=== PATIENT | female | born 1990 | race Caucasian/White ===

== ENCOUNTER → 2018-01-11 | Outpatient (REF) | payer OTHER ==
[2018-01-11 19:40] LABS: BASO % 0.5 % (0.0-1.0); EOS # 0.2 10^3/uL (0.0-0.50); EOS % 2.3 % (0.0-3.0); HEMATOCRIT 38.9 % (36.0-47.0); HEMOGLOBIN 12.8 g/dl (12.0-15.5); IMMATURE GRANULOCYTE % 0.5 % (0-3.0); LYMPH # 2.4 10^3/uL (1.5-6.5); LYMPH % 29.4 % (24.0-44.0); MEAN CORPUSCULAR HEMOGLOBIN 29.1 pg (27.0-33.0); MEAN CORPUSCULAR HGB CONC 32.9 g/dl (32.0-36.5); MEAN CORPUSCULAR VOLUME 88.4 fl (80.0-96.0); MONO # 0.5 10^3/uL (0.0-0.8); MONO % 5.7 % (0.0-5.0); NEUTROPHILS % 61.6 % (36.0-66.0); PLATELET COUNT, AUTOMATED 256 10^3/uL (150-450); RED CELL DISTRIBUTION WIDTH 13.5 % (11.5-14.5); WHITE BLOOD COUNT 8.1 10^3/uL (4.0-10.0)
[2018-01-11 19:49] LABS: ALBUMIN 3.9 GM/DL (3.2-5.2); ALBUMIN/GLOBULIN RATIO 1.05 (1.00-1.93); ALKALINE PHOSPHATASE 74 U/L (45-117); ALT/SGPT 38 U/L (12-78); ANION GAP 7 MEQ/L (8-16); AST/SGOT 20 U/L (7-37); BILIRUBIN,TOTAL 0.3 MG/DL (0.2-1.0); BLOOD UREA NITROGEN 13 MG/DL (7-18); CALCIUM LEVEL 9.2 MG/DL (8.5-10.1); CARBON DIOXIDE LEVEL 27 MEQ/L (21-32); CHLORIDE LEVEL 106 MEQ/L (98-107); CREATININE FOR GFR 0.78 MG/DL (0.55-1.30); FREE T4 0.97 NG/DL (0.76-1.46); GLOMERULAR FILTRATION RATE > 60.0 (>60); GLUCOSE, FASTING 77 MG/DL (70-100); POTASSIUM SERUM 4.1 MEQ/L (3.5-5.1); SODIUM LEVEL 140 MEQ/L (136-145); TOTAL PROTEIN 7.6 GM/DL (6.4-8.2)
== END ==
LOC: M SFHCADAM 11:25
DX: Z31.9 Encounter for procreative management, unspecified (principal); F32.9 Major depressive disorder, single episode, unspecified; E66.01 Morbid (severe) obesity due to excess calories

== ENCOUNTER → 2020-05-26 | Outpatient (REF) | payer OTHER ==
[2020-05-26 18:31] LABS: BASO % 0.4 % (0.0-1.0); EOS # 0.1 10^3/uL (0.0-0.5); HEMATOCRIT 39.3 % (36.0-47.0); HEMOGLOBIN 12.8 g/dl (12.0-15.5); LYMPH % 27.9 % (24.0-44.0); MEAN CORPUSCULAR HEMOGLOBIN 28.6 pg (27.0-33.0); MEAN CORPUSCULAR HGB CONC 32.6 g/dl (32.0-36.5); MEAN CORPUSCULAR VOLUME 87.7 fl (80.0-96.0); MONO # 0.3 10^3/uL (0.0-0.8); MONO % 4.5 % (0.0-5.0); NEUTROPHILS # 4.6 10^3/uL (1.5-8.5); NEUTROPHILS % 64.6 % (36.0-66.0); PLATELET COUNT, AUTOMATED 269 10^3/uL (150-450); RED BLOOD COUNT 4.48 10^6/uL (4.00-5.40); WHITE BLOOD COUNT 7.1 10^3/uL (4.0-10.0)
[2020-05-26 19:09] LABS: ALBUMIN 3.8 GM/DL (3.2-5.2); BILIRUBIN,TOTAL 0.3 MG/DL (0.2-1.0); CALCIUM LEVEL 9.4 MG/DL (8.5-10.1); CREATININE FOR GFR 1.23 MG/DL (0.55-1.30); FREE T4 1.16 NG/DL (0.76-1.46); GLOMERULAR FILTRATION RATE 54.2 (>60); POTASSIUM SERUM 4.2 MEQ/L (3.5-5.1); THYROID STIMULATING HORMONE 3.63 uIU/ML (0.358-3.740); TOTAL PROTEIN 7.4 GM/DL (6.4-8.2)
[2020-05-26 19:48] LABS: HEMOGLOBIN A1c 5.9 %
== END ==
LOC: M LAB REF 18:07 → M LABDRWAD 18:07
PROVIDERS: ATTEND Physician Assistant Medical
DX: N97.9 Female infertility, unspecified (principal); N91.5 Oligomenorrhea, unspecified; N93.9 Abnormal uterine and vaginal bleeding, unspecified; E66.9 Obesity, unspecified

== ENCOUNTER 2021-04-22 13:21 | Emergency (ER) | payer OTHER ==
[~2021-04-22] VITALS: Ht 160 cm; Wt 120.0 kg
[2021-04-22] MEDS ORDERED: AMIT25TA17 (13:36)
[2021-04-22] MEDS ORDERED: FLUTISP (13:36)
[2021-04-22] MEDS ORDERED: KETOROLAC 30 MG/ML 1ML VIAL IV ONE (17:30)
[2021-04-22] MEDS ORDERED: ACETAMINOPHEN 325 MG TAB PO ONE (17:30)
[2021-04-22] MEDS ORDERED: METOCLOPRAMIDE INJ 10MG/2ML VIAL (J2765 PER 1) IV ONE (17:30)
[2021-04-22] MEDS ORDERED: NS 1,000 ML IV ONE (17:30)
[2021-04-22 18:12] LABS: BASO % 0.3 % (0.0-1.0); EOS # 0.2 10^3/uL (0.0-0.5); EOS % 1.9 % (0.0-3.0); HEMATOCRIT 40.5 % (36.0-47.0); LYMPH # 2.2 10^3/uL (1.5-5.0); LYMPH % 23.3 % (24.0-44.0); MEAN CORPUSCULAR HEMOGLOBIN 27.8 pg (27.0-33.0); MEAN CORPUSCULAR HGB CONC 32.1 g/dl (32.0-36.5); MEAN CORPUSCULAR VOLUME 86.5 fl (80.0-96.0); MONO # 0.5 10^3/uL (0.0-0.8); MONO % 5.7 % (2.0-8.0); NEUTROPHILS # 6.4 10^3/uL (1.5-8.5); NEUTROPHILS % 68.3 % (36.0-66.0); PLATELET COUNT, AUTOMATED 291 10^3/uL (150-450); RED BLOOD COUNT 4.68 10^6/uL (4.00-5.40); WHITE BLOOD COUNT 9.4 10^3/uL (4.0-10.0)
--- NOTE | 2021-04-22 18:19 | REPVR ---
PROCEDURE INFORMATION: Exam: CT Head Without Contrast Exam date and time: 04/22/2021 5:29 PM Age: 31 years old Clinical indication: Pain; Headache; Additional info: Intractable headache TECHNIQUE: Imaging protocol: Computed tomography of the head without contrast. Radiation optimization: All CT scans at this facility use at least one of these dose optimization techniques: automated exposure control; mA and/or kV adjustment per patient size (includes targeted exams where dose is matched to clinical indication); or iterative reconstruction. COMPARISON: No relevant prior studies available. FINDINGS: Brain: Normal. No hemorrhage. Unremarkable white matter. No mass effect. Cerebral ventricles: No ventriculomegaly. Paranasal sinuses: Visualized sinuses are unremarkable. No fluid levels. Mastoid air cells: Visualized mastoid air cells are well aerated. Bones/joints: Unremarkable. No acute fracture. Soft tissues: Unremarkable. IMPRESSION: No acute intracranial abnormality. Electronically signed by: Eliazar Cabello On 04/22/2021 18:18:48 PM
[2021-04-22 18:41] LABS: BLOOD UREA NITROGEN 14 MG/DL (7-18); C REACTIVE PROTEIN QUANTITATIV 0.88 MG/DL (0.00-0.30); CALCIUM LEVEL 9.1 MG/DL (8.5-10.1); CARBON DIOXIDE LEVEL 27 MEQ/L (21-32); CHLORIDE LEVEL 103 MEQ/L (98-107); GLOMERULAR FILTRATION RATE > 60.0 (>60); GLUCOSE, FASTING 72 MG/DL (70-100); POTASSIUM SERUM 4.5 MEQ/L (3.5-5.1); SODIUM LEVEL 137 MEQ/L (136-145)
[2021-04-22 19:33] LABS: ERYTHROCYTE SEDIMENTATION RATE 2 mm/hr (0-20)
[2021-04-22] MEDS ORDERED: ISOVUE-370 76% 100ML VIAL As Ordered ONE (20:06)
--- NOTE | 2021-04-22 20:27 | REPVR ---
PROCEDURE INFORMATION: Exam: CT Angiography Head With Contrast, Arteriography Exam date and time: 04/22/2021 8:09 PM Age: 31 years old Clinical indication: Pain; Headache; Additional info: Headache, family HX aneurysm (r/o aneurysm) TECHNIQUE: Imaging protocol: Computed tomography angiography of the head with contrast. Exam focused on the arteries. 3D rendering (Not supervised by radiologist): MIP and/or 3D reconstructed images were created by the technologist. Radiation optimization: All CT scans at this facility use at least one of these dose optimization techniques: automated exposure control; mA and/or kV adjustment per patient size (includes targeted exams where dose is matched to clinical indication); or iterative reconstruction. Contrast material: ISOVUE 370; Contrast volume: 75 ml; Contrast route: INTRAVENOUS (IV); COMPARISON: CT Head without contrast 04/22/2021 6:02 PM FINDINGS: ANTERIOR CIRCULATION: Right internal carotid artery: Unremarkable. Intracranial segment is patent with no significant stenosis. No aneurysm. Right middle cerebral artery: Unremarkable. No occlusion or significant stenosis. No aneurysm. Right anterior cerebral artery: Unremarkable. No occlusion or significant stenosis. No aneurysm. Left internal carotid artery: Unremarkable. Intracranial segment is patent with no significant stenosis. No aneurysm. Left middle cerebral artery: Unremarkable. No occlusion or significant stenosis. No aneurysm. Left anterior cerebral artery: Unremarkable. No occlusion or significant stenosis. No aneurysm. POSTERIOR CIRCULATION: Right vertebral artery: Unremarkable. No occlusion or significant stenosis. No aneurysm. Left vertebral artery: Unremarkable. No occlusion or significant stenosis. No aneurysm. Basilar artery: Unremarkable. No occlusion or significant stenosis. No aneurysm. Right posterior cerebral artery: Unremarkable. No occlusion or significant stenosis. No aneurysm. Left posterior cerebral artery: Unremarkable. No occlusion or significant stenosis. No aneurysm. Brain: No definite mass, mass effect, or midline shift. Cerebral ventricles: No ventriculomegaly. Bones/joints: Unremarkable. No acute fracture. Soft tissues: Unremarkable. IMPRESSION: No large vessel stenosis or occlusion. No aneurysm demonstrated. Electronically signed by: Eliazar Cabello On 04/22/2021 20:26:42 PM
[2021-04-22] MEDS ORDERED: TOPA50TA8 PO (20:29)
[2021-04-22 20:35] VITALS: BP 143/69
== END 2021-04-22 21:08 | disposition home or self-care (01) ==
LOC: M ED 13:21
DX: R51.9 Headache, unspecified (principal)
CPT/HCPCS: 70450; 70496; 80048; 84702; 85025; 85652; 86140; 96361; 96374; 96375; 99284; J1885; J2765; Q9967

== ENCOUNTER → 2021-11-29 | Outpatient (REF) | payer OTHER ==
[~2021-11-29] MED LIST: AMIT25TA17; FLUTISP; TOPA50TA8 PO
[2021-11-29 16:29] LABS: BASO % 0.6 % (0.0-1.0); EOS # 0.2 10^3/uL (0.0-0.5); EOS % 2.2 % (0.0-3.0); HEMOGLOBIN 12.2 g/dl (12.0-15.5); LYMPH # 2.2 10^3/uL (1.5-5.0); LYMPH % 32.7 % (24.0-44.0); MEAN CORPUSCULAR HEMOGLOBIN 28.8 pg (27.0-33.0); MEAN CORPUSCULAR VOLUME 87.3 fl (80.0-96.0); MONO # 0.4 10^3/uL (0.0-0.8); MONO % 5.8 % (2.0-8.0); NEUTROPHILS # 3.9 10^3/uL (1.5-8.5); NEUTROPHILS % 58.4 % (36.0-66.0); PLATELET COUNT, AUTOMATED 295 10^3/uL (150-450); RED BLOOD COUNT 4.24 10^6/uL (4.00-5.40); WHITE BLOOD COUNT 6.7 10^3/uL (4.0-10.0)
[2021-11-29 17:13] LABS: ALBUMIN 3.7 GM/DL (3.2-5.2); ALT/SGPT 30 U/L (12-78); BILIRUBIN,TOTAL 0.2 MG/DL (0.2-1.0); BLOOD UREA NITROGEN 19 MG/DL (7-18); CALCIUM LEVEL 8.9 MG/DL (8.5-10.1); CARBON DIOXIDE LEVEL 26 MEQ/L (21-32); CHLORIDE LEVEL 108 MEQ/L (98-107); CREATININE FOR GFR 0.98 MG/DL (0.55-1.30); GLOMERULAR FILTRATION RATE > 60.0 (>60); GLUCOSE, FASTING 105 MG/DL (70-100); POTASSIUM SERUM 3.7 MEQ/L (3.5-5.1); SODIUM LEVEL 141 MEQ/L (136-145); TOTAL PROTEIN 7.2 GM/DL (6.4-8.2)
== END ==
LOC: M SFHCADAM 11:25
PROVIDERS: ATTEND Family Medicine
DX: Z00.00 Encounter for general adult medical examination without abnormal findings (principal)

== ENCOUNTER → 2023-01-31 | Outpatient (REF) | payer OTHER ==
[~2023-01-31] MED LIST changes: +FLUT50SP17; -FLUTISP
[2023-01-31 13:11] LABS: BASO # 0.1 10^3/uL (0.0-0.2); BASO % 0.6 % (0.0-1.0); EOS # 0.2 10^3/uL (0.0-0.5); EOS % 2.7 % (0.0-3.0); HEMATOCRIT 36.6 % (36.0-47.0); HEMOGLOBIN 11.8 g/dl (12.0-15.5); LYMPH # 2.5 10^3/uL (1.5-5.0); LYMPH % 30.6 % (24.0-44.0); MEAN CORPUSCULAR HEMOGLOBIN 28.1 pg (27.0-33.0); MEAN CORPUSCULAR HGB CONC 32.2 g/dl (32.0-36.5); MEAN CORPUSCULAR VOLUME 87.1 fl (80.0-96.0); MONO # 0.4 10^3/uL (0.0-0.8); MONO % 5.4 % (2.0-8.0); NEUTROPHILS # 4.8 10^3/uL (1.5-8.5); NEUTROPHILS % 60.3 % (36.0-66.0); PLATELET COUNT, AUTOMATED 265 10^3/uL (150-450)
[2023-01-31 13:42] LABS: ALBUMIN 3.4 G/DL (3.2-5.2); ALKALINE PHOSPHATASE 75 U/L (46-116); ALT/SGPT 10 U/L (7.0-40); AST/SGOT 17 U/L (<34); BILIRUBIN,TOTAL 0.3 MG/DL (0.3-1.2); BLOOD UREA NITROGEN 15 MG/DL (9-23); CALCIUM LEVEL 8.4 MG/DL (8.5-10.1); CARBON DIOXIDE LEVEL 24 MMOL/L (20-31); CHLORIDE LEVEL 107 MMOL/L (98-107); CHOLESTEROL LEVEL 184 MG/DL (<200); CREATININE FOR GFR 0.87 MG/DL (0.55-1.30); GLOMERULAR FILTRATION RATE > 60.0 (>60); GLUCOSE, FASTING 107 MG/DL (60-100); LDL CHOLESTEROL 128.4 MG/DL (<100); POTASSIUM SERUM 3.8 MMOL/L (3.5-5.1); SODIUM LEVEL 140 MMOL/L (136-145); TOTAL PROTEIN 6.7 G/DL (5.7-8.2); TRIGLYCERIDES LEVEL 78 MG/DL (<150)
== END ==
LOC: M SFHCADAM 10:04
PROVIDERS: ATTEND Family Medicine
DX: Z00.00 Encounter for general adult medical examination without abnormal findings (principal)

== ENCOUNTER → 2023-02-22 | Outpatient (CLI) | payer OTHER | LOC: M SOG 08:09 | PROVIDERS: ATTEND Orthopaedic Surgery | DX: M25.562 Pain in left knee (principal) ==

== ENCOUNTER → 2023-02-28 | Outpatient (CLI) | payer OTHER | LOC: M ADAMS 14:28 | PROVIDERS: ATTEND Family Medicine | DX: M54.50 Low back pain, unspecified (principal); M51.37 Other intervertebral disc degeneration, lumbosacral region; M43.17 Spondylolisthesis, lumbosacral region ==

== ENCOUNTER → 2023-07-20 | Outpatient (REF) | payer OTHER ==
[~2023-07-20] MED LIST changes: -AMIT25TA17; +AMIT25TA19
== END ==
LOC: M LAB REF 19:59
PROVIDERS: ATTEND Physician Assistant
DX: J00 Acute nasopharyngitis [common cold] (principal)

== ENCOUNTER → 2023-10-26 | Outpatient (REF) | payer OTHER ==
[~2023-10-26] MED LIST changes: -FLUT50SP17; +FLUTISP
== END ==
LOC: M SFHCADAM 16:17
PROVIDERS: ATTEND Physician Assistant
DX: J06.9 Acute upper respiratory infection, unspecified (principal); Z53.9 Procedure and treatment not carried out, unspecified reason

== ENCOUNTER → 2024-01-19 | Outpatient (REF) | payer OTHER | LOC: M LAB REF 16:17 | PROVIDERS: ATTEND Physician Assistant | DX: R11.2 Nausea with vomiting, unspecified (principal) ==

== ENCOUNTER → 2024-09-02 | Outpatient (CLI) | payer OTHER | LOC: M PLALAB 11:24 | PROVIDERS: ATTEND Advanced Practice Midwife | DX: O26.91 Pregnancy related conditions, unspecified, first trimester (principal); O28.3 Abnormal ultrasonic finding on antenatal screening of mother; Z3A.00 Weeks of gestation of pregnancy not specified ==

== ENCOUNTER → 2024-09-02 | Outpatient (CLI) | payer OTHER | LOC: M WHC 13:27 | PROVIDERS: ATTEND Advanced Practice Midwife | DX: O26.891 Other specified pregnancy related conditions, first trimester (principal); O28.3 Abnormal ultrasonic finding on antenatal screening of mother; Z3A.01 Less than 8 weeks gestation of pregnancy; N88.8 Other specified noninflammatory disorders of cervix uteri ==

== ENCOUNTER → 2024-09-04 | Outpatient (CLI) | payer OTHER | LOC: M PLALAB 14:07 | PROVIDERS: ATTEND Advanced Practice Midwife | DX: O26.91 Pregnancy related conditions, unspecified, first trimester (principal) ==

== ENCOUNTER → 2024-09-06 | Outpatient (CLI) | payer OTHER | LOC: M PLALAB 10:31 | PROVIDERS: ATTEND Advanced Practice Midwife | DX: Z34.91 Encounter for supervision of normal pregnancy, unspecified, first trimester (principal) ==

== ENCOUNTER → 2024-09-09 | Outpatient (CLI) | payer OTHER | LOC: M WHC 11:40 → M RAD 12:10 | PROVIDERS: ATTEND Advanced Practice Midwife | DX: Z34.91 Encounter for supervision of normal pregnancy, unspecified, first trimester (principal); Z3A.01 Less than 8 weeks gestation of pregnancy ==

== ENCOUNTER 2024-09-25 09:38 | Emergency (ER) | payer OTHER ==
[~2024-09-25] VITALS: Ht 157.5 cm; Wt 85.7 kg
[2024-09-25] MEDS: ONDANSETRON 4MG ORAL DISINTEGRATING TAB PO ONE (09:55)
[2024-09-25 11:06] VITALS: BP 136/74; TEMP 98.3; O2SAT 97
[2024-09-25 11:16] LABS: BASO % 0.2 % (0.0-1.0); EOS % 0.2 % (0.0-3.0); HEMATOCRIT 40.7 % (36.0-47.0); HEMOGLOBIN 14.1 g/dl (12.0-15.5); LYMPH # 1.6 10^3/uL (1.5-5.0); LYMPH % 12.1 % (24.0-44.0); MEAN CORPUSCULAR HEMOGLOBIN 29.9 pg (27.0-33.0); MEAN CORPUSCULAR HGB CONC 34.6 g/dl (32.0-36.5); MEAN CORPUSCULAR VOLUME 86.2 fl (80.0-96.0); MONO # 0.6 10^3/uL (0.0-0.8); MONO % 4.2 % (2.0-8.0); NEUTROPHILS % 82.8 % (36.0-66.0); PLATELET COUNT, AUTOMATED 320 10^3/uL (150-450); RED BLOOD COUNT 4.72 10^6/uL (4.00-5.40); WHITE BLOOD COUNT 13.3 10^3/uL (4.0-10.0)
[2024-09-25] MEDS: diphenhydrAMINE 50MG/ML VIAL IV ONE (11:30)
[2024-09-25] MEDS: ACETAMINOPHEN *IV* 1,000 MG in IV 1 EA IV ONE (11:30)
[2024-09-25] MEDS: METOCLOPRAMIDE INJ 10MG/2ML VIAL IV ONE (11:31)
[2024-09-25 11:37] LABS: BLOOD UREA NITROGEN 22 MG/DL (9-23); CALCIUM LEVEL 10.3 MG/DL (8.5-10.1); CARBON DIOXIDE LEVEL 25 MMOL/L (20-31); CHLORIDE LEVEL 99 MMOL/L (98-107); CREATININE FOR GFR 0.62 MG/DL (0.55-1.30); GLOMERULAR FILTRATION RATE > 60.0 (>60); GLUCOSE, FASTING 131 MG/DL (60-100); POTASSIUM SERUM 3.6 MMOL/L (3.5-5.1); SODIUM LEVEL 137 MMOL/L (136-145)
[2024-09-25 11:57] LABS: LIPASE 27 U/L (12-53)
[2024-09-25 11:59] LABS: ALBUMIN 3.9 G/DL (3.2-5.2); ALKALINE PHOSPHATASE 89 U/L (35-104); ALT/SGPT 24 U/L (7.0-40); AST/SGOT 16 U/L (<34); BILIRUBIN,DIRECT 0.2 MG/DL (<0.4); BILIRUBIN,TOTAL 0.6 MG/DL (0.3-1.2); CK-MB VALUE MASS < 1.0 NG/ML (<3.6); CPK CREATINE PHOSPHOKINASE 62 U/L (34-145); MB/CK RELATIVE INDEX 1.61 (< OR =4); TOTAL PROTEIN 8.3 G/DL (5.7-8.2)
[2024-09-25 12:07] LABS: HCG, SERUM QUANTITATIVE 104720.8 MIU/ML (<4.2)
[2024-09-25] MEDS ORDERED: REGL10TA6 PO (13:06)
[2024-09-25] MEDS ORDERED: ONDA-282 PO (13:06)
[2024-09-25] MEDS: MAGNESIUM OXIDE 400MG TAB (MAG-OX) PO ONE (13:08)
== END 2024-09-25 13:14 | disposition home or self-care (01) ==
LOC: M ED 09:38
DX: O21.9 Vomiting of pregnancy, unspecified (principal); O99.351 Diseases of the nervous system complicating pregnancy, first trimester; R51.9 Headache, unspecified; Z3A.08 8 weeks gestation of pregnancy; Z88.1 Allergy status to other antibiotic agents; Z88.2 Allergy status to sulfonamides; Z79.899 Other long term (current) drug therapy; Z79.83 Long term (current) use of bisphosphonates
CPT/HCPCS: 80048; 80076; 82550; 82553; 83690; 84484; 84702; 85025; 87486; 87581; 87633; 87798; 93005; 96365; 96375; 99284; J0131; J1200; J2765

== ENCOUNTER → 2024-10-22 | Outpatient (CLI) | payer OTHER ==
[~2024-10-22] MED LIST changes: +ONDA-282 PO; +REGL10TA6 PO
[2024-10-22 17:59] LABS: HEMATOCRIT 36.5 % (36.0-47.0); HEMOGLOBIN 12.5 g/dl (12.0-15.5); MEAN CORPUSCULAR HEMOGLOBIN 30.1 pg (27.0-33.0); MEAN CORPUSCULAR HGB CONC 34.2 g/dl (32.0-36.5); PLATELET COUNT, AUTOMATED 285 10^3/uL (150-450); RED BLOOD COUNT 4.15 10^6/uL (4.00-5.40); WHITE BLOOD COUNT 9.2 10^3/uL (4.0-10.0)
[2024-10-22 18:22] LABS: URIC ACID 4.4 MG/DL (3.1-7.8)
[2024-10-22 18:24] LABS: LDH LACTATE DEHYDROGENASE 155 U/L (120-246)
[2024-10-22 18:25] LABS: ALT/SGPT 14 U/L (7.0-40); AST/SGOT 13 U/L (<34); BILIRUBIN,TOTAL 0.3 MG/DL (0.3-1.2); CREATININE FOR GFR 0.58 MG/DL (0.55-1.30); GLOMERULAR FILTRATION RATE > 60.0 (>60)
[2024-10-22 18:50] LABS: HIV 1&2 SCREEN NEGATIVE (NEGATIVE)
[2024-10-22 18:59] LABS: HEPATITIS C VIRUS ABY INDEX 0.13 INDEX (<0.8)
== END ==
LOC: M PLALAB 15:59
PROVIDERS: ATTEND Advanced Practice Midwife
DX: Z34.81 Encounter for supervision of other normal pregnancy, first trimester (principal)

== ENCOUNTER → 2024-12-12 | Outpatient (CLI) | payer OTHER | LOC: M RAD 13:22 | PROVIDERS: ATTEND Advanced Practice Midwife | DX: O32.2XX0 Maternal care for transverse and oblique lie, not applicable or unspecified (principal); Z3A.19 19 weeks gestation of pregnancy ==

== ENCOUNTER 2024-12-31 10:23 | Outpatient (CLI) | payer OTHER ==
[~2024-12-31] VITALS: Ht 162.6 cm; Wt 119.0 kg
[2024-12-31 10:36] VITALS: BP 144/72
[2024-12-31] MEDS ORDERED: ASPI81CH33 PO (11:27)
[2024-12-31] MEDS ORDERED: ESCI5SOL3 PO (11:27)
[2024-12-31] MEDS ORDERED: BANO25TA PO (11:27)
[2024-12-31] MEDS ORDERED: HOME MED LIST COMPLETE! XX SCH (11:30)
[2024-12-31] MEDS: ONDANSETRON 4MG 2ML VIAL IV ONE (11:49)
[2024-12-31] MEDS: LR 1,000 ML IV ONE (11:49)
[2024-12-31] MEDS: LR 1,000 ML IV SCH (11:52)
[2024-12-31 13:11] VITALS: BP 135/62
[2024-12-31 13:55] LABS: HEMATOCRIT 33.3 % (36.0-47.0); HEMOGLOBIN 11.4 g/dl (12.0-15.5); MEAN CORPUSCULAR HEMOGLOBIN 30.7 pg (27.0-33.0); MEAN CORPUSCULAR HGB CONC 34.2 g/dl (32.0-36.5); MEAN CORPUSCULAR VOLUME 89.8 fl (80.0-96.0); PLATELET COUNT, AUTOMATED 299 10^3/uL (150-450); RED BLOOD COUNT 3.71 10^6/uL (4.00-5.40); WHITE BLOOD COUNT 17.7 10^3/uL (4.0-10.0)
[2024-12-31] MEDS: ACETAMINOPHEN 500 MG TAB PO ONE (14:10)
[2024-12-31] MEDS: CYCLOBENZAPRINE 10MG TABLET PO ONE (14:10)
[2024-12-31 14:24] LABS: LIPASE 25 U/L (12-53)
[2024-12-31 14:26] LABS: AMYLASE 75 U/L (30-118)
[2024-12-31 14:33] LABS: KETONE, URINE AUTO RFX 1+ mg/dL (NEGATIVE); LEUKOCYTE ESTERASE UR AUTO RFX NEGATIVE (NEGATIVE); NITRITE, URINE AUTO RFX NEGATIVE (NEGATIVE); RBC, URINE AUTO RFX 0 /HPF (0-3); SQUAM EPITHELIAL CELL UR AURFX 8 /HPF (0-6); WBC, URINE AUTO RFX 1 /HPF (0-3)
[2024-12-31] MEDS ORDERED: CYCL-707 PO (15:56)
[2024-12-31] MEDS ORDERED: PROM50TA PO (15:56)
== END 2024-12-31 16:15 | disposition home or self-care (01) ==
LOC: M LDO 10:23
PROVIDERS: ATTEND Obstetrics & Gynecology
DX: O99.612 Diseases of the digestive system complicating pregnancy, second trimester (principal); O09.522 Supervision of elderly multigravida, second trimester; O99.342 Other mental disorders complicating pregnancy, second trimester; O09.212 Supervision of pregnancy with history of pre-term labor, second trimester; O34.219 Maternal care for unspecified type scar from previous cesarean delivery; K52.9 Noninfective gastroenteritis and colitis, unspecified; F32.A Depression, unspecified; F41.9 Anxiety disorder, unspecified; Z79.82 Long term (current) use of aspirin; Z86.79 Personal history of other diseases of the circulatory system; Z87.891 Personal history of nicotine dependence; Z3A.22 22 weeks gestation of pregnancy
CPT/HCPCS: 36415; 81001; 82150; 83690; 85027; 93005; 96360; 96374; G0463; J2405

== ENCOUNTER 2025-01-01 17:14 | Emergency (ER) | payer OTHER ==
[~2025-01-01] VITALS: Ht 157.5 cm; Wt 102.3 kg
[~2025-01-01 17:14] MED LIST changes: +ASPI81CH33 PO; +BANO25TA PO; +CYCL-707 PO; +ESCI5SOL3 PO; +PROM50TA PO
[2025-01-01] MEDS: NS (Normal Saline) 0.9% 1,000 ML IV ONE (17:46)
[2025-01-01] MEDS: ACETAMINOPHEN *IV* 1,000 MG in IV 1 EA IV ONE (17:46)
[2025-01-01 17:49] LABS: BASO % 0.4 % (0.0-1.0); EOS # 0.2 10^3/uL (0.0-0.5); EOS % 1.7 % (0.0-3.0); HEMATOCRIT 32.4 % (36.0-47.0); LYMPH # 1.9 10^3/uL (1.5-5.0); LYMPH % 18.1 % (24.0-44.0); MEAN CORPUSCULAR HEMOGLOBIN 30.5 pg (27.0-33.0); MEAN CORPUSCULAR VOLUME 89.8 fl (80.0-96.0); MONO # 0.6 10^3/uL (0.0-0.8); MONO % 5.8 % (2.0-8.0); NEUTROPHILS # 7.6 10^3/uL (1.5-8.5); NEUTROPHILS % 73.1 % (36.0-66.0); PLATELET COUNT, AUTOMATED 238 10^3/uL (150-450); RED BLOOD COUNT 3.61 10^6/uL (4.00-5.40); WHITE BLOOD COUNT 10.3 10^3/uL (4.0-10.0)
[2025-01-01 18:17] LABS: LIPASE 24 U/L (12-53)
[2025-01-01 18:19] LABS: CPK CREATINE PHOSPHOKINASE 124 U/L (34-145)
[2025-01-01 18:24] LABS: ALBUMIN 2.8 G/DL (3.2-5.2); ALKALINE PHOSPHATASE 80 U/L (35-104); ALT/SGPT 22 U/L (7.0-40); AST/SGOT 22 U/L (<34); BILIRUBIN,DIRECT 0.2 MG/DL (<0.4); BILIRUBIN,TOTAL 0.5 MG/DL (0.3-1.2); BLOOD UREA NITROGEN 9 MG/DL (9-23); CALCIUM LEVEL 8.4 MG/DL (8.5-10.1); CARBON DIOXIDE LEVEL 23 MMOL/L (20-31); CHLORIDE LEVEL 103 MMOL/L (98-107); CK-MB VALUE MASS < 1.0 NG/ML (<3.6); CREATININE FOR GFR 0.53 MG/DL (0.55-1.30); FREE T4 1.35 NG/DL (0.89-1.76); GLOMERULAR FILTRATION RATE > 90.0 (>60); GLUCOSE, FASTING 86 MG/DL (60-100); POTASSIUM SERUM 3.1 MMOL/L (3.5-5.1); SODIUM LEVEL 138 MMOL/L (136-145); THYROID STIMULATING HORMONE 0.864 uIU/ML (0.55-4.78); TOTAL PROTEIN 6.3 G/DL (5.7-8.2)
[2025-01-01] MEDS: POTASSIUM CHLORIDE 10MEQ SR TABLET PO ONE (18:30)
[2025-01-01 18:43] LABS: CK-MB VALUE MASS < 1.0 NG/ML (<3.6)
[2025-01-01 18:44] LABS: CPK CREATINE PHOSPHOKINASE 125 U/L (34-145)
[2025-01-01] MEDS: METOCLOPRAMIDE INJ 10MG/2ML VIAL IV ONE (18:58)
[2025-01-01] MEDS: diphenhydrAMINE 50MG/ML VIAL IV STA (18:58)
[2025-01-01] MEDS ORDERED: ISOVUE-370 76% 100ML VIAL As Ordered ONE (19:25)
[2025-01-01 21:59] VITALS: BP 131/70; TEMP 98; O2SAT 98
== END 2025-01-01 22:48 | disposition home or self-care (01) ==
LOC: EDBD 17:14 → M ED 17:14
DX: O99.282 Endocrine, nutritional and metabolic diseases complicating pregnancy, second trimester (principal); E87.6 Hypokalemia; O26.892 Other specified pregnancy related conditions, second trimester; R07.9 Chest pain, unspecified; O98.512 Other viral diseases complicating pregnancy, second trimester; O10.012 Pre-existing essential hypertension complicating pregnancy, second trimester; O99.342 Other mental disorders complicating pregnancy, second trimester; Z79.82 Long term (current) use of aspirin; Z79.899 Other long term (current) drug therapy; Z87.891 Personal history of nicotine dependence; Z3A.00 Weeks of gestation of pregnancy not specified
CPT/HCPCS: 71275; 80048; 80076; 82550; 82553; 83690; 84439; 84443; 84484; 85025; 85379; 87486; 87581; 87633; 87798; 93005; 93041; 94760; 96365; 96366; 96375; 99285; J0131; J1200; J2765; Q9967

== ENCOUNTER 2025-01-06 22:11 | Emergency (ER) | payer OTHER ==
[~2025-01-06] VITALS: Ht 157.5 cm; Wt 100.0 kg
[2025-01-06 22:45] LABS: BASO % 0.3 % (0.0-1.0); EOS # 0.1 10^3/uL (0.0-0.5); EOS % 0.8 % (0.0-3.0); HEMATOCRIT 34.8 % (36.0-47.0); HEMOGLOBIN 12.2 g/dl (12.0-15.5); MEAN CORPUSCULAR HEMOGLOBIN 31.1 pg (27.0-33.0); MEAN CORPUSCULAR HGB CONC 35.1 g/dl (32.0-36.5); MEAN CORPUSCULAR VOLUME 88.8 fl (80.0-96.0); MONO # 0.7 10^3/uL (0.0-0.8); MONO % 5.2 % (2.0-8.0); NEUTROPHILS # 10.4 10^3/uL (1.5-8.5); NEUTROPHILS % 77.7 % (36.0-66.0); PLATELET COUNT, AUTOMATED 279 10^3/uL (150-450); RED BLOOD COUNT 3.92 10^6/uL (4.00-5.40); WHITE BLOOD COUNT 13.4 10^3/uL (4.0-10.0)
[2025-01-06] MEDS: ONDANSETRON 4MG 2ML VIAL IV ONE (22:57)
[2025-01-06] MEDS: NS (Normal Saline) 0.9% 1,000 ML IV ONE (22:58)
[2025-01-06] MEDS: ACETAMINOPHEN *IV* 1,000 MG in IV 1 EA IV ONE (22:58)
[2025-01-06 23:14] LABS: ALBUMIN 3.2 G/DL (3.2-5.2); ALKALINE PHOSPHATASE 97 U/L (35-104); ALT/SGPT 15 U/L (7.0-40); AST/SGOT 13 U/L (<34); BILIRUBIN,TOTAL 0.4 MG/DL (0.3-1.2); BLOOD UREA NITROGEN 9 MG/DL (9-23); CARBON DIOXIDE LEVEL 22 MMOL/L (20-31); CHLORIDE LEVEL 103 MMOL/L (98-107); CK-MB VALUE MASS < 1.0 NG/ML (<3.6); CPK CREATINE PHOSPHOKINASE 61 U/L (34-145); CREATININE FOR GFR 0.48 MG/DL (0.55-1.30); GLOMERULAR FILTRATION RATE > 90.0 (>60); GLUCOSE, FASTING 92 MG/DL (60-100); MB/CK RELATIVE INDEX 1.63 (< OR =4); POTASSIUM SERUM 3.8 MMOL/L (3.5-5.1); SODIUM LEVEL 138 MMOL/L (136-145); TOTAL PROTEIN 7.1 G/DL (5.7-8.2)
[2025-01-06 23:26] LABS: PROCALCITONIN <0.04 ng/ml
[2025-01-07 00:34] VITALS: TEMP 98
[2025-01-07] MEDS: BUTORPHANOL 2 MG/ML 1ML VIAL IV ONE (00:34)
[2025-01-07 01:45] VITALS: BP 101/56; O2SAT 97
== END 2025-01-07 02:15 | disposition home or self-care (01) ==
LOC: M ED 22:11 → EDBD 22:11 → M ED 01-07 02:15
DX: O98.512 Other viral diseases complicating pregnancy, second trimester (principal); B34.2 Coronavirus infection, unspecified; O99.342 Other mental disorders complicating pregnancy, second trimester; F32.A Depression, unspecified; Z88.1 Allergy status to other antibiotic agents; Z88.2 Allergy status to sulfonamides; Z79.899 Other long term (current) drug therapy; Z3A.23 23 weeks gestation of pregnancy
CPT/HCPCS: 80053; 82550; 82553; 83735; 84145; 84484; 85025; 87486; 87581; 87633; 87798; 93005; 96374; 96375; 99284; J0131; J0595; J2405

== ENCOUNTER 2025-03-30 09:28 | Outpatient (CLI) | payer OTHER ==
[~2025-03-30] VITALS: Ht 157.5 cm; Wt 102.1 kg
[2025-03-30] VITALS (12 sets, daily range): BP systolic 121–152; BP diastolic 60–87; O2SAT 97
[~2025-03-30 09:28] MED LIST changes: +FERR325T19 PO; +OMEP40CA4 PO
[2025-03-30] MEDS ORDERED: HOME MED LIST COMPLETE! XX SCH (09:45)
[2025-03-30] MEDS: LR 1,000 ML IV ONE (10:24)
[2025-03-30 10:27] LABS: PLATELET COUNT, AUTOMATED 311 10^3/uL (150-450)
[2025-03-30] MEDS: diphenhydrAMINE 50 MG/ML VIAL IV ONE (10:29)
[2025-03-30 10:56] LABS: LDH LACTATE DEHYDROGENASE 229 U/L (120-246)
[2025-03-30] MEDS: ACETAMINOPHEN *IV* 1,000 MG in IV 1 EA IV ONE (10:56)
[2025-03-30 10:57] LABS: ALT/SGPT 14 U/L (7.0-40); AST/SGOT 20 U/L (<34); CREATININE FOR GFR 0.59 MG/DL (0.55-1.30); GLOMERULAR FILTRATION RATE > 90.0 (>60)
[2025-03-30] MEDS: LR 1,000 ML IV SCH (11:24)
[2025-03-30 12:55] LABS: TOTAL PROTEIN,RANDOM URINE 49.5 MG/DL (0.0-14.0)
[2025-03-30 13:35] LABS: KETONE, URINE AUTO RFX 1+ mg/dL (NEGATIVE); LEUKOCYTE ESTERASE UR AUTO RFX NEGATIVE (NEGATIVE); MUCUS, URINE RFX LARGE (NEGATIVE); NITRITE, URINE AUTO RFX NEGATIVE (NEGATIVE); RBC, URINE AUTO RFX 1 /HPF (0-3); SQUAM EPITHELIAL CELL UR AURFX 5 /HPF (0-6); WBC, URINE AUTO RFX 9 /HPF (0-3)
[2025-03-30] MEDS ORDERED: PROM1SUP2 PR (13:44)
== END 2025-03-30 14:04 | disposition home or self-care (01) ==
LOC: M LDO 09:28
PROVIDERS: ATTEND Obstetrics & Gynecology
DX: O21.8 Other vomiting complicating pregnancy (principal); O26.893 Other specified pregnancy related conditions, third trimester; O09.513 Supervision of elderly primigravida, third trimester; O10.013 Pre-existing essential hypertension complicating pregnancy, third trimester; R25.2 Cramp and spasm; R51.9 Headache, unspecified; R19.7 Diarrhea, unspecified; Z3A.34 34 weeks gestation of pregnancy
CPT/HCPCS: 36415; 59025; 76815; 81001; 82150; 82247; 82570; 83615; 83690; 84156; 84450; 84460; 84550; 85027; 87486; 87581; 87633; 87798; 96360; 96361; 96365; 96374; 96375; G0463; J0131; J1200; J2765

== ENCOUNTER 2025-04-04 14:58 | Outpatient (CLI) | payer OTHER ==
[~2025-04-04] VITALS: Ht 157.5 cm; Wt 102.3 kg
[~2025-04-04 14:58] MED LIST changes: +PROM1SUP2 PR
[2025-04-04 15:12] VITALS: BP 134/61
[2025-04-04] MEDS ORDERED: HOME MED LIST COMPLETE! XX SCH (15:20)
== END 2025-04-04 17:44 | disposition home or self-care (01) ==
LOC: M LDO 14:58
PROVIDERS: ATTEND Obstetrics & Gynecology
DX: O21.8 Other vomiting complicating pregnancy (principal); O10.913 Unspecified pre-existing hypertension complicating pregnancy, third trimester; O34.219 Maternal care for unspecified type scar from previous cesarean delivery; O09.523 Supervision of elderly multigravida, third trimester; Z3A.35 35 weeks gestation of pregnancy; Z88.1 Allergy status to other antibiotic agents; Z88.2 Allergy status to sulfonamides
CPT/HCPCS: 59025; G0463

== ENCOUNTER 2025-04-05 13:16 | Outpatient (CLI) | payer OTHER ==
[~2025-04-05] VITALS: Ht 157.5 cm; Wt 102.3 kg
[2025-04-05] VITALS (7 sets, daily range): BP systolic 125–166; BP diastolic 63–75
[2025-04-05] MEDS ORDERED: HOME MED LIST COMPLETE! XX SCH (13:30)
[2025-04-05] MEDS: ONDANSETRON 4MG 2ML VIAL IV ONE (14:17)
[2025-04-05] MEDS: LR 1,000 ML IV ONE (14:17)
[2025-04-05] MEDS: ACETAMINOPHEN 650 MG SUPP PR ONE (15:44)
[2025-04-05] MEDS: MORPHINE 10 MG/ML 1 ML VIAL IV ONE (17:30)
[2025-04-05] MEDS: PROMETHAZINE 25MG/ML 1ML VIAL IV ONE (17:31)
[2025-04-05] MEDS: LACTATED RINGER'S 1000 ML IV ONE (18:39)
== END 2025-04-05 21:06 | disposition home or self-care (01) ==
LOC: M LDO 13:16
PROVIDERS: ATTEND Obstetrics & Gynecology
DX: O21.8 Other vomiting complicating pregnancy (principal); R51.9 Headache, unspecified; O09.523 Supervision of elderly multigravida, third trimester; O10.013 Pre-existing essential hypertension complicating pregnancy, third trimester; O34.219 Maternal care for unspecified type scar from previous cesarean delivery; Z3A.35 35 weeks gestation of pregnancy
CPT/HCPCS: 59025; 96360; 96374; 96375; G0463; J2405; J2550

== ENCOUNTER → 2025-04-11 | Outpatient (REF) | payer OTHER | LOC: M SFHCWAGY 16:47 | PROVIDERS: ATTEND Obstetrics & Gynecology | DX: Z34.80 Encounter for supervision of other normal pregnancy, unspecified trimester (principal) ==

== ENCOUNTER → 2025-04-17 | Outpatient (CLI) | payer OTHER ==
[~2025-04-17] MED LIST changes: +COLA100C5 PO; +IBUP80TA PO; +LABE100T6 PO; +NIFE1TAB52 PO; +PRENTAB9 PO
[2025-04-17 10:42] LABS: LDH LACTATE DEHYDROGENASE 162 U/L (120-246)
[2025-04-17 10:43] LABS: ALT/SGPT 19 U/L (7.0-40); AST/SGOT 22 U/L (<34); CREATININE FOR GFR 0.58 MG/DL (0.55-1.30); GLOMERULAR FILTRATION RATE > 90.0 (>60)
[2025-04-17 11:00] LABS: TOTAL PROTEIN,RANDOM URINE 53.2 MG/DL (0.0-14.0)
[2025-04-17 11:06] LABS: PLATELET COUNT, AUTOMATED 250 10^3/uL (150-450)
== END ==
LOC: M PLALAB 08:23
PROVIDERS: ATTEND Obstetrics & Gynecology
DX: O10.019 Pre-existing essential hypertension complicating pregnancy, unspecified trimester (principal); Z3A.00 Weeks of gestation of pregnancy not specified

== ENCOUNTER 2025-04-18 15:10 | Inpatient (IN) | payer OTHER ==
[2025-04-18] VITALS (13 sets, daily range): BP systolic 139–196; BP diastolic 72–99; TEMP 98.2; O2SAT 97–98
[~2025-04-18] VITALS: Ht 157.5 cm; Wt 105.1 kg
[~2025-04-18 15:10] MED LIST changes: -COLA100C5 PO; -IBUP80TA PO; -LABE100T6 PO; -NIFE1TAB52 PO; -PRENTAB9 PO
[2025-04-18] MEDS ORDERED: PRENTAB9 PO (15:37)
[2025-04-18] MEDS ORDERED: BANO25TA PO (15:42)
[2025-04-18] MEDS ORDERED: HOME MED LIST COMPLETE! XX SCH (15:55)
[2025-04-18 16:30] LABS: PLATELET COUNT, AUTOMATED 247 10^3/uL (150-450)
[2025-04-18 16:32] LABS: TOTAL PROTEIN,RANDOM URINE 51.0 MG/DL (0.0-14.0)
[2025-04-18 16:49] LABS: LDH LACTATE DEHYDROGENASE 162 U/L (120-246)
[2025-04-18 16:50] LABS: ALT/SGPT 20 U/L (7.0-40); AST/SGOT 29 U/L (<34); CREATININE FOR GFR 0.58 MG/DL (0.55-1.30); GLOMERULAR FILTRATION RATE > 90.0 (>60)
[2025-04-18] MEDS ORDERED: CARBOPROST TROMETHAMINE 250 MCG/ML AMP IM PRN (17:15)
[2025-04-18] MEDS ORDERED: TRANEXAMIC ACID INJection 1,000 MG in NS 100 ML IV PRN (17:15)
[2025-04-18] MEDS ORDERED: LIDOCAINE 1% MDV 20 ML VIAL INFIL PRN (17:15)
[2025-04-18] MEDS: AZITHROMYCIN INJ 500 MG, VIAL MATE ADAPTER 1 EACH in NS 250 ML IV ONE (17:43)
[2025-04-18] MEDS: ceFAZolin SODIUM 2 GM in DEXTROSE 5% (D5W) ADV/MINI-BAG 50 ML IV ONE (17:43)
[2025-04-18] MEDS ORDERED: NALOXONE INJ 0.4 MG/1 ML VIAL IV PRN ×2 (17:45)
[2025-04-18] MEDS ORDERED: ONDANSETRON 4MG 2ML VIAL IV PRN (17:45)
[2025-04-18] MEDS ORDERED: **NOTE PATIENT COMMENT** MISC XX SCH (17:45)
[2025-04-18] MEDS ORDERED: HYDROMORPHONE HCL 0.5 MG/0.5 ML SYRINGE IV PRN (17:45)
[2025-04-18] MEDS ORDERED: diphenhydrAMINE 50 MG/ML VIAL IV PRN (17:45)
[2025-04-18] MEDS ORDERED: SLF 3 ML SYR IV SCH (17:45)
[2025-04-18] MEDS: BICITRA 30 ML SOLN UDC PO ONE (17:46)
[2025-04-18] MEDS ORDERED: MORPHINE PRES-FREE INJ 10 MG/10 ML VIAL As Ordered ONE (17:48)
[2025-04-18] MEDS ORDERED: PHENYLephrine 500MCG 5ML (100MCG/ML) SYRINGE As Ordered ONE (17:54)
[2025-04-18] MEDS ORDERED: RHOGAM 300MCG (1500IU) INJ IM SCH (18:05)
[2025-04-18 18:19] LABS: HIV 1&2 SCREEN NEGATIVE (NEGATIVE)
[2025-04-18 18:27] LABS: HEPATITIS C VIRUS ABY INDEX < 0.02 INDEX (<0.8)
[2025-04-18 18:49] LABS: CORD GAS ABE V -2.6; CORD GAS HCO3 V 21.4 MMOL/L; CORD GAS O2 SAT V 60.9 %; CORD GAS PCO2 V 34.9 mmHg; CORD GAS PH V 7.405 UNITS; CORD GAS PO2 V 24.8 mmHg; CORD GAS SBC V 21.4 MMOL/L; CORD GAS TCO2 V 22.4 MMOL/L
[2025-04-18 18:50] LABS: CORD GAS ABE A -2.3; CORD GAS HCO3 A 23.6 MMOL/L; CORD GAS O2 SAT A 15.6 %; CORD GAS PCO2 A 44.8 mmHg; CORD GAS PH A 7.34 UNITS; CORD GAS PO2 A 10.9 mmHg; CORD GAS SBC A 20.8 MMOL/L; CORD GAS TCO2 A 25.0 MMOL/L
[2025-04-18] MEDS ORDERED: dexAMETHasone 4 MG/ML 1 ML VIAL As Ordered ONE (19:02)
[2025-04-18] MEDS ORDERED: ONDANSETRON 4MG 2ML VIAL As Ordered ONE (19:02)
[2025-04-18] MEDS: OXYTOCIN DRIP 30 UNITS in IV 1 EA IV SCH (19:42)
[2025-04-18] MEDS: KETOROLAC 30 MG/ML 1 ML VIAL IV SCH (21:39)
[2025-04-18] MEDS: DOCUSATE SODIUM 100 MG CAPSULE PO SCH (21:39)
[2025-04-19] VITALS (8 sets, daily range): BP systolic 121–157; BP diastolic 63–89; O2SAT 96–98
[2025-04-19 06:24] LABS: PLATELET COUNT, AUTOMATED 203 10^3/uL (150-450)
[2025-04-19] MEDS: diphenhydrAMINE 50 MG/ML VIAL IV PRN (06:45)
[2025-04-19 06:52] LABS: CALCIUM LEVEL 8.4 MG/DL (8.5-10.1); CARBON DIOXIDE LEVEL 22 MMOL/L (20-31); CHLORIDE LEVEL 103 MMOL/L (98-107); CREATININE FOR GFR 0.61 MG/DL (0.55-1.30); GLOMERULAR FILTRATION RATE > 90.0 (>60); POTASSIUM SERUM 4.5 MMOL/L (3.5-5.1); SODIUM LEVEL 137 MMOL/L (136-145)
[2025-04-19] MEDS: PRENATAL VITAMINS CHEWABLE TABLET PO SCH (09:00)
[2025-04-20] VITALS (10 sets, daily range): BP systolic 131–208; BP diastolic 63–120; O2SAT 96–99
[2025-04-20] MEDS: MEASLES,MUMPS,RUBELLA VACCINE INJ (MMR-II) SC.IMMUN ONE (07:38)
[2025-04-20] MEDS ORDERED: ACETAMINOPHEN 500 MG TAB PO PRN (07:40)
[2025-04-20] MEDS: ACETAMINOPHEN 325 MG TAB PO PRN (07:48)
[2025-04-20] MEDS: SIMETHICONE 80MG CHEW TAB PO PRN (07:48)
[2025-04-20] MEDS: LABETALOL 200 MG TAB PO SCH (10:58)
[2025-04-20 11:14] LABS: PLATELET COUNT, AUTOMATED 203 10^3/uL (150-450)
[2025-04-20 11:38] LABS: LDH LACTATE DEHYDROGENASE 259 U/L (120-246)
[2025-04-20 11:39] LABS: ALT/SGPT 26 U/L (7.0-40); AST/SGOT 45 U/L (<34); CREATININE FOR GFR 0.61 MG/DL (0.55-1.30); GLOMERULAR FILTRATION RATE > 90.0 (>60)
[2025-04-21 05:30] VITALS: BP 158/86; O2SAT 96
[2025-04-21] MEDS ORDERED: IBUPROFEN 800 MG TAB PO SCH (06:00)
[2025-04-21] MEDS: IBUPROFEN 800 MG TAB PO SCH (09:09)
[2025-04-21] MEDS: LABETALOL 100 MG TAB PO SCH (09:11)
[2025-04-21 09:41] VITALS: BP 150/80; O2SAT 96
[2025-04-21] MEDS: NIFEdipine 10 MG CAP PO SCH (09:41)
[2025-04-21 14:00] VITALS: BP 142/72; O2SAT 96
[2025-04-21 18:00] VITALS: BP 137/72; O2SAT 96
[2025-04-21] MEDS: ESCITALOPRAM OXALATE 10 MG TABLET PO SCH (18:13)
[2025-04-21] MEDS: LORazepam 1 MG TAB PO ONE (20:12)
[2025-04-21 21:41] VITALS: BP 139/69; O2SAT 95
[2025-04-22] VITALS (7 sets, daily range): BP systolic 138–172; BP diastolic 67–90; O2SAT 95–97
[2025-04-22] MEDS: NIFEdipine 30 MG XL TAB PO SCH (06:40)
[2025-04-22] MEDS ORDERED: NIFEdipine 30 MG XL TAB PO SCH (09:00)
[2025-04-22 12:24] LABS: PLATELET COUNT, AUTOMATED 238 10^3/uL (150-450)
[2025-04-22 12:47] LABS: LDH LACTATE DEHYDROGENASE 230 U/L (120-246)
[2025-04-22 12:49] LABS: ALT/SGPT 23 U/L (7.0-40); AST/SGOT 32 U/L (<34); CALCIUM LEVEL 8.9 MG/DL (8.5-10.1); CARBON DIOXIDE LEVEL 24 MMOL/L (20-31); CHLORIDE LEVEL 104 MMOL/L (98-107); CREATININE FOR GFR 0.57 MG/DL (0.55-1.30); GLOMERULAR FILTRATION RATE > 90.0 (>60); POTASSIUM SERUM 3.5 MMOL/L (3.5-5.1); SODIUM LEVEL 139 MMOL/L (136-145)
[2025-04-22] MEDS: LORazepam 1 MG TAB PO PRN (20:47)
[2025-04-23 02:00] VITALS: BP 134/96; O2SAT 97
[2025-04-23 05:47] VITALS: BP 150/82; O2SAT 96
[2025-04-23 09:41] VITALS: BP 151/72
[2025-04-23 10:17] VITALS: BP 151/72; O2SAT 96
[2025-04-23] MEDS ORDERED: COLA100C5 PO (11:37)
[2025-04-23] MEDS ORDERED: IBUP80TA PO (11:37)
[2025-04-23] MEDS ORDERED: LABE100T6 PO (11:37)
[2025-04-23] MEDS ORDERED: NIFE1TAB52 PO (11:37)
== END 2025-04-23 14:23 | disposition home or self-care (01) | DRG 540 ==
LOC: M LDO 15:10 → M LDI 17:00 → M OBS 21:00
PROVIDERS: ADMIT Advanced Practice Midwife; ATTEND Obstetrics & Gynecology
PROC: 0UT70ZZ Resection of Bilateral Fallopian Tubes, Open Approach (ICD-10-PCS; 2025-04-18)
PROC: 10D00Z1 Extraction of Products of Conception, Low, Open Approach (ICD-10-PCS; principal; 2025-04-18 17:33)
DX: O34.211 Maternal care for low transverse scar from previous cesarean delivery (principal); O75.82 Onset (spontaneous) of labor after 37 completed weeks of gestation but before 39 completed weeks gestation, with delivery by (planned) cesarean section; O11.4 Pre-existing hypertension with pre-eclampsia, complicating childbirth; Z3A.37 37 weeks gestation of pregnancy; Z37.0 Single live birth; Z30.2 Encounter for sterilization; Z88.0 Allergy status to penicillin; Z88.2 Allergy status to sulfonamides; Z88.8 Allergy status to other drugs, medicaments and biological substances; Z79.82 Long term (current) use of aspirin; Z79.899 Other long term (current) drug therapy

== ENCOUNTER → 2025-07-11 | Outpatient (CLI) | payer OTHER ==
[~2025-07-11] MED LIST changes: +COLA100C5 PO; +IBUP80TA PO; +LABE100T6 PO; +NIFE1TAB52 PO; +PRENTAB9 PO
== END ==
LOC: M RAD 14:22
PROVIDERS: ATTEND Student in an Organized Health Care Education/Training Program
DX: M54.6 Pain in thoracic spine (principal); R07.89 Other chest pain

== ENCOUNTER → 2025-08-18 | Outpatient (CLI) | payer OTHER ==
[~2025-08-18] MED LIST changes: -LABE100T6 PO; +LABE100T91 PO
== END ==
LOC: M RAD 17:07
PROVIDERS: ATTEND Student in an Organized Health Care Education/Training Program
DX: M25.562 Pain in left knee (principal); G89.29 Other chronic pain; M54.42 Lumbago with sciatica, left side; M17.12 Unilateral primary osteoarthritis, left knee

== ENCOUNTER → 2025-09-04 | Outpatient (REF) | payer OTHER ==
[2025-09-04 19:21] LABS: C REACTIVE PROTEIN QUANTITATIV < 0.50 MG/DL (<1.0); RHEUMATOID FACTOR QUANT 5.3 IU/ML (<14)
[2025-09-04 19:22] LABS: ALT/SGPT 12 U/L (7.0-40); AST/SGOT 15 U/L (<34); CALCIUM LEVEL 8.4 MG/DL (8.5-10.1); CARBON DIOXIDE LEVEL 28 MMOL/L (20-31); CHLORIDE LEVEL 104 MMOL/L (98-107); CHOLESTEROL LEVEL 186 MG/DL (<200); CHOLESTEROL RISK RATIO 3.83 (<5); CREATININE FOR GFR 0.67 MG/DL (0.55-1.30); GLOMERULAR FILTRATION RATE > 90.0 (>60); LDL CHOLESTEROL 117.1 MG/DL (<100); NON-HDL-C 137.5 MG/DL; POTASSIUM SERUM 4.2 MMOL/L (3.5-5.1); SODIUM LEVEL 140 MMOL/L (136-145); TRIGLYCERIDES LEVEL 102 MG/DL (<150)
[2025-09-04 19:24] LABS: FREE T4 0.92 NG/DL (0.89-1.76)
[2025-09-04 19:29] LABS: PLATELET COUNT, AUTOMATED 283 10^3/uL (150-450)
[2025-09-04 19:36] LABS: ESTIMATED AVERAGE GLUCOSE 88.0 MG/DL (60-110)
== END ==
LOC: M LAB REF 16:15
PROVIDERS: ATTEND Student in an Organized Health Care Education/Training Program
DX: R07.89 Other chest pain (principal); Z68.38 Body mass index [BMI] 38.0-38.9, adult; M25.50 Pain in unspecified joint